=== PATIENT | female | born 1935 | race Caucasian/White ===

== ENCOUNTER 2016-11-13 | Outpatient (CLI) | payer MEDICARE, OTHER | END 2016-11-13 11:20 | disposition EMS.NT | DX: R03.0 Elevated blood-pressure reading, without diagnosis of hypertension (principal) ==

== ENCOUNTER 2016-11-13 12:32 | Emergency (ER) | payer MEDICARE, OTHER ==
[2016-11-13] MEDS ORDERED: SODIUM CHLORIDE 0.9% 1,000 ML IV ONE (14:08)
== END 2016-11-13 16:02 | disposition home or self-care (01) ==
DX: E86.0 Dehydration (principal); I10 Essential (primary) hypertension; E78.00 Pure hypercholesterolemia, unspecified; R19.7 Diarrhea, unspecified; Z79.82 Long term (current) use of aspirin

== ENCOUNTER 2016-11-14 | Outpatient (CLI) | payer MEDICARE, OTHER | END 2016-11-14 23:44 | disposition critical access hospital (66) | CPT/HCPCS: A0425; A0427 ==

== ENCOUNTER 2016-11-15 00:18 | Emergency (ER) | payer MEDICARE, OTHER ==
[2016-11-15] MEDS ORDERED: ISOSORBIDE MONONITRATE ER 30 MG TABLET PO STA (01:30)
[2016-11-15] MEDS ORDERED: ACETAMINOPHEN 325 MG TABLET PO STA (01:30)
[2016-11-15] MEDS ORDERED: ACETAMINOPHEN 325 MG TABLET PO ONE (01:34)
== END 2016-11-15 02:23 | disposition home or self-care (01) ==
DX: I15.9 Secondary hypertension, unspecified (principal); R51 Headache; E78.00 Pure hypercholesterolemia, unspecified; Z79.82 Long term (current) use of aspirin
CPT/HCPCS: 99284; A9270

== ENCOUNTER 2016-12-04 07:23 | Outpatient (CLI) | payer MEDICARE, OTHER | END 2016-12-04 07:24 | disposition home or self-care (01) | DX: R07.2 Precordial pain (principal); R51 Headache; I77.1 Stricture of artery; R06.02 Shortness of breath ==

== ENCOUNTER 2020-03-31 10:45 | Emergency (ER) | payer MEDICARE, OTHER ==
[2020-03-31 10:56] VITALS: BP 149/91
--- NOTE | 2020-03-31 11:28 | ED Physician Documentation ---
PD HPI LOWER EXT INJURY - Stated complaint Stated Complaint: LEFT CALF LAC - Chief complaint Chief Complaint: Laceration - History obtained from History obtained from: Patient - History of Present Illness PD HPI LOW EXT INJURY LOCATION: Right, Lower leg Type of injury: Blunt / blow Where injury occurred: Home Timing - onset: Last night Timing - duration: Hours Timing - details: Abrupt onset, Still present Improved by: Rest Worsened by: Moving, Palpating Associated symptoms: No: Weakness, Numbness, Tingling Contributing factors: Anticoagulated Similar symptoms before: Diagnosis (laceration) Recently seen: Other (Had colonoscopy this past week) - Additional information Additional information: 84-year-old female on Eliquis 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 She had bleeding all night long and she has come in this morning for repair. Review of Systems Constitutional: denies: Fever Eyes: denies: Decreased vision Ears: denies: Ear pain Nose: denies: Congestion Throat: denies: Sore throat Cardiac: denies: Chest pain / pressure, Palpitations Respiratory: denies: Dyspnea PD PAST MEDICAL HISTORY - Past Medical History Cardiovascular: Hypertension, High cholesterol - Past Surgical History Past Surgical History: No - Present Medications Home Medications: Ambulatory Orders Medication Instructions Recorded Confirmed Atenolol 50 mg PO DAILY 11/13/16 11/13/16 Levothyroxine [Synthroid] 100 mcg PO DAILY 11/13/16 11/13/16 Omeprazole [PriLOSEC] 20 mg PO DAILY 11/13/16 11/13/16 Simvastatin 10 mg PO DAILY 11/13/16 11/13/16 lisinopriL [Lisinopril] 40 mg PO DAILY 11/13/16 11/13/16 Isosorbide Mononitrate ER [Imdur] 15 mg PO DAILY #15 tablet 11/15/16 Apixaban [Eliquis] 5 mg PO 03/31/20 Chloroquine Phosphate 250 mg PO 03/31/20 Prednisone 5 mg PO 03/31/20 - Allergies Allergies/Adverse Reactions: Allergies Allergy/AdvReac Type Severity Reaction Status Date / Time No Known Drug Allergies Allergy Verified 03/31/20 10:56 - Social History Does the pt smoke?: No Smoking Status: Never smoker Does the pt drink ETOH?: No Does the pt have substance abuse?: No PD ED PE NORMAL - Vitals Vital signs reviewed: Yes (Hypertensive) - General General: Alert and oriented X 3, No acute distress, Well developed/nourished - HEENT HEENT: Atraumatic, PERRL, EOMI - Respiratory Respiratory: No respiratory distress - Derm Derm: Normal color, Warm and dry, No rash - Extremities Extremities: No deformity, No edema, No calf tenderness / cord, Other (There is a 4 cm skin tear to the right lower calf laterally. The skin does cover the defect there is no foreign material in the wound.) - Neuro Neuro: Alert and oriented X 3, accordion tuner 2-12 intact, No motor deficit, No sensory deficit, Normal speech Eye Opening: Spontaneous Motor: Obeys Commands Verbal: Oriented GCS Score: 15 - Psych Psych: Normal mood, Normal affect Results - Vitals Vitals: Vital Signs - 24 hr 03/31/20 10:52 Temperature 36.8 C Heart Rate 75 Respiratory 18 Rate Blood Pressure 149/91 H O2 Saturation 99 Oxygen O2 Source Room air Procedures - Laceration (location) Right calf Length in cm: 4 Wound type: Flap, Superficial, Clean Neurovascular status: Sensory intact, Motor intact Anesthesia: OTH (Topical lidocaine gel) Wound Preparation: Hibiclens, Irrigated copiously NS, Wound explored, To the base, Multiple flaps aligned Skin layer closure: Dermabond, Other (Sure closed is used with tincture of benzoin and Dermabond over the top.) Other: Patient tolerated well, No complications, Neurovascular intact, Dressing applied, Tetanus booster given Complexity: Simple PD MEDICAL DECISION MAKING - ED course Complexity details: reviewed old records, considered differential, d/w patient ED course: 84-year-old female with a superficial skin tear to her right calf has the skin reapproximated and this covers the defect well it is closed with Shur-Clens and Dermabond. She is given a tetanus booster. Departure - Departure Disposition: 01 Home, Self Care Clinical Impression: Laceration of right calf Condition: Stable Instructions: ED Laceration Sure Close Follow-Up: Your, doctor [Other]
[2020-03-31] MEDS ORDERED: TETANUS/DIPHTHERIA/PERTUSSIS 0.5 ML SYRINGE IM ONE (11:32)
== END 2020-03-31 11:59 | disposition home or self-care (01) ==
LOC: ED 10:45
DX: S81.811A Laceration without foreign body, right lower leg, initial encounter (principal); W22.09XA Striking against other stationary object, initial encounter; Y92.000 Kitchen of unspecified non-institutional (private) residence as the place of occurrence of the external cause; Z23 Encounter for immunization; I10 Essential (primary) hypertension; Z79.01 Long term (current) use of anticoagulants
CPT/HCPCS: 12002; 90471; 99282; 99283

== ENCOUNTER 2021-04-05 08:00 | Outpatient (CLI) | payer MEDICARE, OTHER | END 2021-04-05 23:59 | disposition home or self-care (01) | LOC: LAB.S 08:00 | PROVIDERS: ATTEND Emergency Medicine | DX: L02.612 Cutaneous abscess of left foot (principal) | CPT/HCPCS: 87070; 87077; 87181; 87205 ==

== ENCOUNTER 2021-09-19 16:17 | Outpatient (CLI) | payer MEDICARE, OTHER ==
[2021-09-19 20:03] LABS: CALCIUM 9.8 mg/dL (8.5-10.3); CREATININE 1.1 mg/dL (0.4-1.0); POTASSIUM 4.6 mmol/L (3.5-5.0)
== END 2021-09-19 16:18 | disposition home or self-care (01) ==
LOC: LAB.S 16:17
PROVIDERS: ATTEND Internal Medicine
DX: E87.1 Hypo-osmolality and hyponatremia (principal)
CPT/HCPCS: 36415; 80048

== ENCOUNTER 2021-10-03 09:13 | Outpatient (CLI) | payer MEDICARE, OTHER ==
[2021-10-03 14:52] LABS: BASOPHILS # (AUTO) 0.1 10^3/uL (0.0-0.1); BASOPHILS % (AUTO) 1.2 %; EOSINOPHILS # (AUTO) 0.3 10^3/uL (0.0-0.7); EOSINOPHILS % (AUTO) 5.1 %; HCT - HEMATOCRIT 36.5 % (37.0-47.0); HGB - HEMOGLOBIN 11.8 g/dL (12.0-16.0); LYMPHOCYTES # (AUTO) 1.9 10^3/uL (1.5-3.5); LYMPHOCYTES % (AUTO) 32.9 %; MEAN CORPUSCULAR HGB CONC 32.3 g/dL (32.0-36.0); MEAN CORPUSCULAR VOLUME 98.9 fL (81.0-99.0); MEAN PLATELET VOLUME 11.4 fL (7.9-10.8); MONOCYTES # (AUTO) 0.6 10^3/uL (0.0-1.0); MONOCYTES % (AUTO) 10.5 %; NEUTROPHILS # (AUTO) 2.9 10^3/uL (1.5-6.6); PLT - PLATELET COUNT 177 10^3/uL (130-450); RED BLOOD COUNT 3.69 10^6/uL (4.20-5.40); RED CELL DISTRIBUTION WIDTH 12.4 % (12.0-15.0); WHITE BLOOD COUNT 5.7 x10^3/uL (4.8-10.8)
[2021-10-03 15:28] LABS: CALCIUM 9.3 mg/dL (8.5-10.3); POTASSIUM 4.4 mmol/L (3.5-5.0)
[2021-10-03 15:47] LABS: THYROID STIMULATING HORMONE 1.99 uIU/mL (0.34-5.60)
[2021-10-03 20:38] LABS: ESTIMATED AVERAGE GLUCOSE 111 mg/dL (70-100); HEMOGLOBIN A1c% 5.5 % (4.27-6.07)
== END 2021-10-03 09:14 | disposition home or self-care (01) ==
LOC: LAB.S 09:13
PROVIDERS: ATTEND Internal Medicine
DX: E87.1 Hypo-osmolality and hyponatremia (principal); R61 Generalized hyperhidrosis; E03.9 Hypothyroidism, unspecified; R20.0 Anesthesia of skin; R73.9 Hyperglycemia, unspecified; E53.8 Deficiency of other specified B group vitamins
CPT/HCPCS: 36415; 80048; 81599; 82607; 83036; 84155; 84165; 84443; 85025; 86592

== ENCOUNTER 2021-11-08 08:00 | Outpatient (CLI) | payer MEDICARE, OTHER | END 2021-11-08 08:01 | disposition home or self-care (01) | LOC: LAB.R 08:00 | PROVIDERS: ATTEND Physician Assistant | DX: L60.0 Ingrowing nail (principal); L03.039 Cellulitis of unspecified toe | CPT/HCPCS: 87070; 87205 ==

== ENCOUNTER 2021-12-03 11:27 | Outpatient (CLI) | payer MEDICARE, OTHER ==
--- NOTE | 2021-12-03 12:11 | XRAY Report ---
PROCEDURE: Chest 2 View X-Ray INDICATIONS: CHRONIC RIGHT KNEE PAIN, NIGHT SWEATS TECHNIQUE: 2 view(s) of the chest. COMPARISON: None. FINDINGS: Surgical changes and devices: Cholecystectomy clips.. Lungs and pleura: No pleural effusions or pneumothorax. Lungs are clear. Mediastinum: Mediastinal contours are normal. Heart size is normal. Bones and chest wall: No suspicious bony abnormalities. Severe disc height loss in the upper lumbar spine. Soft tissues appear unremarkable. IMPRESSION: No acute cardiopulmonary disease. Reviewed by: Petra Lee MD on 12/03/2021 12:10 PM PST Approved by: Petra Lee MD on 12/03/2021 12:10 PM PST Station ID: [id number]
--- NOTE | 2021-12-03 17:00 | XRAY Report ---
PROCEDURE: Knee 4 View RT INDICATIONS: CHRONIC RIGHT KNEE PAIN, NIGHT SWEATS TECHNIQUE: 4 views of the right knee(s) were acquired. COMPARISON: None. FINDINGS: Bones: No fractures or dislocations. No suspicious bony lesions. Mild tricompartmental periarticul ar osteophyte formation. Soft tissues: No joint effusion. Chondrocalcinosis within the medial and lateral compartments. Focal region of ossific versus calcific density overlies the proximal aspect of the medial collateral liga ment. IMPRESSION: 1. Osteoarthritis. 2. Chondrocalcinosis. 3. Findings suggestive of prior medial collateral ligament injury. Reviewed by: Sachin Cat MD on 12/03/2021 4:59 PM PST Approved by: Sachin Cat MD on 12/03/2021 4:59 PM PST Station ID: [id number]
== END 2021-12-03 11:28 | disposition home or self-care (01) ==
LOC: DI.S 11:27
PROVIDERS: ATTEND Internal Medicine
DX: R61 Generalized hyperhidrosis (principal); M17.11 Unilateral primary osteoarthritis, right knee; M11.261 Other chondrocalcinosis, right knee; R93.6 Abnormal findings on diagnostic imaging of limbs

== ENCOUNTER 2021-12-06 10:18 | Outpatient (CLI) | payer MEDICARE, OTHER ==
[2021-12-06 15:14] LABS: BASOPHILS # (AUTO) 0.1 10^3/uL (0.0-0.1); BASOPHILS % (AUTO) 1.4 %; EOSINOPHILS # (AUTO) 0.2 10^3/uL (0.0-0.7); EOSINOPHILS % (AUTO) 4.3 %; HGB - HEMOGLOBIN 12.2 g/dL (12.0-16.0); LYMPHOCYTES # (AUTO) 2.1 10^3/uL (1.5-3.5); LYMPHOCYTES % (AUTO) 42.9 %; MEAN CORPUSCULAR HGB CONC 32.1 g/dL (32.0-36.0); MEAN CORPUSCULAR VOLUME 99.7 fL (81.0-99.0); MEAN PLATELET VOLUME 11.2 fL (7.9-10.8); MONOCYTES # (AUTO) 0.5 10^3/uL (0.0-1.0); MONOCYTES % (AUTO) 9.7 %; NEUTROPHILS # (AUTO) 2.1 10^3/uL (1.5-6.6); NEUTROPHILS % (AUTO) 41.5 %; PLT - PLATELET COUNT 173 10^3/uL (130-450); RED BLOOD COUNT 3.81 10^6/uL (4.20-5.40); WHITE BLOOD COUNT 4.9 x10^3/uL (4.8-10.8)
[2021-12-06 16:19] LABS: ALBUMIN/GLOBULIN RATIO 1.4 (1.0-2.2); BILIRUBIN,TOTAL 1.1 mg/dL (0.2-1.0); CALCIUM 9.5 mg/dL (8.5-10.3); CRP HIGH SENSITIVITY 1.4 mg/L; POTASSIUM 4.4 mmol/L (3.5-5.0); TOTAL PROTEIN 6.9 g/dL (6.7-8.2)
== END 2021-12-06 10:19 | disposition home or self-care (01) ==
LOC: LAB.S 10:18
PROVIDERS: ATTEND Internal Medicine
DX: D64.9 Anemia, unspecified (principal); R61 Generalized hyperhidrosis; E87.1 Hypo-osmolality and hyponatremia; E88.09 Other disorders of plasma-protein metabolism, not elsewhere classified; E53.8 Deficiency of other specified B group vitamins
CPT/HCPCS: 36415; 80053; 81599; 82728; 83540; 84466; 85025; 85651; 86141; 86340

== ENCOUNTER 2022-02-10 15:28 | Emergency (ER) | payer MEDICARE, OTHER ==
--- OUTSIDE RECORDS SUMMARY | 2022-02-10 15:41 | EXTERNAL MEDICAL SUMMARY RPT | Continuity of Care Document ---
:1935 Author Organization [facility] Address [address] [place] [address] Phone Care Team Providers Name Role Phone COLD PRESS LOADER Unavailable Unavailable Registrar Unavailable Unavailable MD Unavailable Unavailable NANNY BABYSITTER,GRAIN FARMWORKER Unavailable Unavailable Allergies No information. Encounters No information. Medications date description facility [id number] fluconazole [facility] [id number] doxycycline hyclate [facility] [id number] fluconazole [facility] [id number] doxycycline hyclate [facility] [id number] fluconazole [facility] [id number] doxycycline hyclate [facility] [id number] fluconazole [facility] [id number] doxycycline hyclate [facility] Problems date description facility [id number] Long-term (current) use of [facility] 20220210 snf (current) use of [facility] mark 20220210 Contusion of scalp, initial encounter [facility] 20220210 Contusion of scalp [facility] mark 20220210 Contusion of face, scalp, and neck [facility] mark 20220210 Anticoagulant therapy [facility] mark 20211212 Tobacco smoking status NHIS [facility] 20211212 Exercise [facility] 20211212 Alcohol intake [facility] mark 20211212 Never smoker [facility] 20211212 Alcohol use [facility] [id number] Never smoker [facility] 20211119 Tobacco smoking status [facility] mark 20211119 Exercise [facility] 20211119 Alcohol use [facility] mark 20211119 Alcohol intake [facility] mark Results No information. Vital Signs date measurement value source 20211119 weight_standard 136 lb 20211119 weight_metric 61.69 kg 20211119 temperature_standard 97.8 F 20211119 temperature_metric 36.56 C 20211119 respiration_rate 14 /min 20211119 height_standard 63 in 20211119 height_metric 160.02 cm 20211119 heart_rate 66 /min 20211119 BP_systolic 134 mm[Hg] 20211119 BP_diastolic 71 mm[Hg] 20211119 BMI 24.18 kg/m2 20211119 weight_standard 136 lb 20211119 weight_metric 61.69 kg 20211119 temperature_standard 97.8 F 20211119 temperature_metric 36.56 C 20211119 respiration_rate 14 /min 20211119 height_standard 63 in 20211119 height_metric 160.02 cm 20211119 heart_rate 66 /min 20211119 BP_systolic 134 mm[Hg] 20211119 BP_diastolic 71 mm[Hg] 20211119 BMI 24.18 kg/m2 20211119 weight_standard 136 lb 20211119 weight_metric 61.69 kg 20211119 temperature_standard 97.8 F 20211119 temperature_metric 36.56 C 20211119 respiration_rate 14 /min 20211119 height_standard 63 in 20211119 height_metric 160.02 cm 20211119 heart_rate 66 /min 20211119 BP_systolic 134 mm[Hg] 20211119 BP_diastolic 71 mm[Hg] 20211119 BMI 24.18 kg/m2 20211119 weight_standard 136 lb 20211119 weight_metric 61.69 kg 20211119 temperature_standard 97.8 F 20211119 temperature_metric 36.56 C 20211119 respiration_rate 14 /min 20211119 height_standard 63 in 20211119 height_metric 160.02 cm 20211119 heart_rate 66 /min 20211119 BP_systolic 134 mm[Hg] 20211119 BP_diastolic 71 mm[Hg] 20211119 BMI 24.18 kg/m2 20211212 weight_standard 136 lb 20211212 weight_metric 61.69 kg 20211212 temperature_standard 97.2 F 20211212 temperature_metric 36.22 C 20211212 respiration_rate 14 /min 20211212 height_standard 63 in 20211212 height_metric 160.02 cm 20211212 heart_rate 66 /min 20211212 BP_systolic 126 mm[Hg] 20211212 BP_diastolic 73 mm[Hg] 20211212 BMI 24.18 kg/m2 20211212 weight_standard 136 lb 20211212 weight_metric 61.69 kg 20211212 temperature_standard 97.2 F 20211212 temperature_metric 36.22 C 20211212 respiration_rate 14 /min 20211212 height_standard 63 in 20211212 height_metric 160.02 cm 20211212 heart_rate 66 /min 20211212 BP_systolic 126 mm[Hg] 20211212 BP_diastolic 73 mm[Hg] 20211212 BMI 24.18 kg/m2 20220210 temperature_standard 97.9 F 20220210 temperature_metric 36.61 C 20220210 respiration_rate 14 /min 20220210 height_standard 63 in 20220210 height_metric 160.02 cm 20220210 heart_rate 74 /min 20220210 BP_systolic 147 mm[Hg] 20220210 BP_diastolic 75 mm[Hg]
--- NOTE | 2022-02-10 15:48 | ED Physician Documentation ---
History of Present Illness - Stated complaint Stated Complaint: fall, facial bruising - Chief complaint Chief Complaint: Trauma Hd/Nk - History obtained from History obtained from: Patient, Family - History of Present Illness Timing: How many days ago (2) Pain level max: 0 Pain level now: 0 - Additonal information Additional information: 86-year-old female brought in by family today. She states that she was walking across her bedroom 2 days ago when she tripped and fell. She struck her head on the door. No loss of consciousness. No vomiting. No headache. No lacerations. She does take Eliquis at home. She states that the bruising on her face increased today so came in for evaluation. No neck or back pain. No numbness or tingling. Nothing makes it better or worse. Patient is asymptomatic. Patient has macular degeneration but no changes in vision. Review of Systems Ten Systems: 10 systems reviewed and negative Constitutional: denies: Fever, Chills Ears: denies: Ear pain Nose: denies: Rhinorrhea / runny nose, Congestion Respiratory: denies: Cough GI: denies: Nausea, Vomiting, Diarrhea : denies: Dysuria Skin: denies: Rash Musculoskeletal: denies: Neck pain, Back pain Neurologic: denies: Headache PD PAST MEDICAL HISTORY - Past Medical History Cardiovascular: Hypertension, High cholesterol - Past Surgical History Past Surgical History: No - Present Medications Home Medications: Ambulatory Orders Medication Instructions Recorded Confirmed Atenolol 50 mg PO DAILY 11/13/16 11/13/16 Levothyroxine [Synthroid] 100 mcg PO DAILY 11/13/16 11/13/16 Omeprazole [PriLOSEC] 20 mg PO DAILY 11/13/16 11/13/16 Simvastatin 10 mg PO DAILY 11/13/16 11/13/16 lisinopriL [Lisinopril] 40 mg PO DAILY 11/13/16 11/13/16 Isosorbide Mononitrate ER [Imdur] 15 mg PO DAILY #15 tablet 11/15/16 Apixaban [Eliquis] 5 mg PO 03/31/20 Chloroquine Phosphate 250 mg PO 03/31/20 predniSONE [Prednisone] 5 mg PO 03/31/20 Cefdinir 300 mg PO BID #14 cap 02/07/22 - Allergies Allergies/Adverse Reactions: Allergies Allergy/AdvReac Type Severity Reaction Status Date / Time No Known Drug Allergies Allergy Verified 02/10/22 15:30 - Social History Does the pt smoke?: No Smoking Status: Never smoker Does the pt drink ETOH?: No Does the pt have substance abuse?: No - POLST Patient has POLST: No PD ED PE NORMAL - Vitals Vital signs reviewed: Yes - General General: Alert and oriented X 3, No acute distress - HEENT HEENT: PERRL, Moist mucous membranes, Other (Extensive bruising to the right side of the face. Her eye is open, tracks normally. Extraocular movements intact. Mild bony tenderness periorbital around the right eye. Has a small hematoma to the forehead.) - Neck Neck: Supple, no meningeal sign, No bony TTP - Cardiac Cardiac: RRR, Strong equal pulses - Respiratory Respiratory: No respiratory distress, Clear bilaterally - Abdomen Abdomen: Soft, Non tender, Non distended - Derm Derm: Warm and dry - Extremities Extremities: Normal ROM s pain - Neuro Neuro: Alert and oriented X 3, lumber cutter 2-12 intact, No motor deficit, No sensory deficit, Normal speech Eye Opening: Spontaneous Motor: Obeys Commands Verbal: Oriented GCS Score: 15 - Psych Psych: Normal mood, Normal affect Results - Vitals Vitals: Vital Signs - 24 hr 02/10/22 02/10/22 02/10/22 15:32 15:36 16:29 Temperature 36.5 C 36.5 C 36.0 C L Heart Rate 72 72 69 Respiratory 18 18 16 Rate Blood Pressure 137/71 H 137/71 H 133/81 H O2 Saturation 99 99 98 Oxygen O2 Source Room air - Rads (name of study) Head CT Radiology: Final report received, EMP read contemporaneously, See rad report maxillofacial CT Radiology: Final report received, EMP read contemporaneously, See rad report PD MEDICAL DECISION MAKING - ED course Complexity details: reviewed results, re-evaluated patient, considered differential, d/w patient ED course: Head CT and maxillofacial CT did not show any fractures or intracranial hemorrhage. Appears to have subcutaneous bruising, hematoma and contusion. Normal vision. No hyphema. We will have the patient follow-up with her doctor for further care. Bruising should resolve on its own. Patient counseled regarding signs and symptoms for which I believe and urgent re-evaluation would be necessary. Patient with good understanding of and agreement to plan and is comfortable going home at this time This document was made in part using voice recognition software. While efforts are made to proofread this document, sound alike and grammatical errors may occur. Departure - Departure Disposition: 01 Home, Self Care Clinical Impression: Fall Qualifiers: Encounter type: initial encounter Qualified Code(s): W19.XXXA - Unspecified fall, initial encounter Facial contusion Qualifiers: Encounter type: initial encounter Qualified Code(s): S00.83XA - Contusion of other part of head, initial encounter Condition: Good Instructions: ED Contusion Face, ED Head Injury Closed Follow-Up: IVANA LUCIA MD [Primary Care Provider] - As Needed Comments: Thankfully your CT scans do not show any acute abnormalities. The bruising will resolve on its own over the next week or so. Continue your medications at home. Return if you worsen. Discharge Date/Time: 02/10/22 16:35
--- NOTE | 2022-02-10 16:16 | CT Report ---
PROCEDURE: MAXILLOFACIAL WO INDICATIONS: fall, facial injuries TECHNIQUE: Noncontrast 1.5 mm thick axial images acquired from the mandible through the frontal sinuses, with co nayeli and sagittal reformatting. For radiation dose reduction, the following was used: automated ex posure control, adjustment of mA and/or kV according to patient size. COMPARISON: Correlation is made with the accompanying head CT, 02/10/2022. Correlation is also made w ith report only from prior head CT examinations dated 11/19/2016 and 02/22/2010. FINDINGS: Image quality: Excellent. Bones and teeth: Orbital lara are intact. Sinus lara show no fracture or deformity. Nasal bones and septum are intact. Visualized portions of the mandible demonstrate no fractures or subluxation. Zygomatic arches are intact. Pterygoid plates are intact. Visualized portions of the skull base an d auditory canals are intact. This patient is incidental is. Sinuses: Paranasal sinuses are aerated, without fluid levels, mucosal thickening, or mucoceles. Mas toid air cells are aerated. Soft tissues: Mild soft tissue hematoma can be seen involving the right forehead. There is mild gener alized soft tissue swelling seen involving the right periorbital region and the right cheek, yet with out focal hematoma. No radiopaque foreign bodies are seen. No drainable fluid collections are seen. No significant abnormalities of the orbits are detected. Vascular: Visualized vascular structures appear normal in the absence of contrast. Bony vascular fo ramina and canals are intact. IMPRESSION: Right forehead hematoma can be seen, with milder soft tissue swelling seen involving the right perior bital region and the right cheek. No underlying facial bone fractures are seen. Reviewed by: Alex Vang MD on 02/10/2022 3:15 PM [facility] Approved by: Alex Vang MD on 02/10/2022 3:15 PM [facility] Station ID: [id number]
--- NOTE | 2022-02-10 16:17 | CT Report ---
PROCEDURE: HEAD WO INDICATIONS: fall, head injury TECHNIQUE: Noncontrast 4.5 mm thick angled axial sections acquired from the foramen magnum to the vertex. For r adiation dose reduction, the following was used: automated exposure control, adjustment of mA and/or kV according to patient size. COMPARISON: Correlation is made with the accompanying maxillofacial CT, 02/10/2022. Correlation is al so made with reports only from prior head CT dated 11/19/2016 and 02/22/2010. FINDINGS: Image quality: There is streak artifact seen through the skull base. CSF spaces: Basal cisterns are patent. No extra-axial fluid collections. Ventricles are normal in size and shape. Brain: No midline shift. No intracranial masses or hemorrhage. Denny-white matter interface is norm al. Skull and face: A right forehead scalp hematoma is seen, without an associated regional fracture. Mi ld periorbital soft tissue swelling is seen and there is partial visualization of soft tissue swellin g of the right cheek. Calvarium and visualized facial bones are intact, without suspicious lesions. Sinuses: Visualized sinuses and mastoids are clear. IMPRESSION: No intracranial hemorrhage is seen. No significant intracranial abnormality is seen. Right forehead soft tissue hematoma can be seen, without an associated fracture identified. Reviewed by: Alex Vang MD on 02/10/2022 3:16 PM [facility] Approved by: Alex Vang MD on 02/10/2022 3:16 PM [facility] Station ID: [id number]
[2022-02-10 16:30] VITALS: BP 133/81
== END 2022-02-10 16:35 | disposition home or self-care (01) ==
LOC: ED 15:28
DX: S00.83XA Contusion of other part of head, initial encounter (principal); W01.198A Fall on same level from slipping, tripping and stumbling with subsequent striking against other object, initial encounter; Y93.01 Activity, walking, marching and hiking; Y92.003 Bedroom of unspecified non-institutional (private) residence as the place of occurrence of the external cause
CPT/HCPCS: 99282; 99284

== ENCOUNTER 2022-11-27 13:11 | Outpatient (CLI) | payer MEDICARE, OTHER ==
--- NOTE | 2022-12-04 11:26 | Mammography Report ---
BILATERAL DIGITAL SCREENING MAMMOGRAM 3D/2D: 11/27/2022 CLINICAL: Routine screening. No prior exams were available for comparison. There are scattered areas of fibroglandular density in both breasts (category b / 25%-50% glandular t issue). No significant masses, calcifications, or other findings are seen in either breast. IMPRESSION: NEGATIVE There is no mammographic evidence of malignancy. A 1 year screening mammogram is recommended. This exam was interpreted at Station ID: [id number]. NOTE: For mammograms, a report in lay terms will be sent to the patient. Approximately 15% of breast malignancies will not be visualized mammographically. In the management of a palpable breast mass, a negative mammogram must not discourage biopsy of a clinically suspicious lesion. Electronically Signed By: Anibal reddy/rose:12/04/2022 07:50:36 ACR BI-RADS Category 1: Negative 3341F PARENCHYMAL PATTERN: (A) - The breast(s) demonstrate(s) scattered fibroglandular densities. BI-RADS CATEGORY: (1) - 1 RECOMMENDATION: (ANNUAL) - Recommend routine annual screening mammography. [id number] 1 year screening LATERALITY: (B)
== END 2022-11-27 13:12 | disposition home or self-care (01) ==
LOC: DI.S 13:11
DX: Z12.31 Encounter for screening mammogram for malignant neoplasm of breast (principal)

== ENCOUNTER 2023-02-03 11:24 | Outpatient (CLI) | payer MEDICARE, OTHER ==
--- NOTE | 2023-02-03 13:15 | XRAY Report ---
PROCEDURE: Chest 2 View X-Ray INDICATIONS: NIGHT SWEATS TECHNIQUE: 2 views of the chest were acquired. COMPARISON: Chest x-ray, 02/06/2022. FINDINGS: Surgical changes and devices: None. Lungs and pleura: No pleural effusions or pneumothorax. Lungs are clear. Mediastinum: Mediastinal contours appear normal. Heart size is normal. Bones and chest wall: No suspicious bony lesions. Overlying soft tissues appear unremarkable. IMPRESSION: No acute cardiopulmonary disease. Reviewed by: David Hsu MD on 02/03/2023 1:14 PM PDT Approved by: David Hsu MD on 02/03/2023 1:14 PM PDT Station ID: [id number]
== END 2023-02-03 11:25 | disposition home or self-care (01) ==
LOC: DI.S 11:24
PROVIDERS: ATTEND Internal Medicine
DX: R61 Generalized hyperhidrosis (principal)

== ENCOUNTER 2024-02-22 17:30 | Outpatient (CLI) | payer MEDICARE, OTHER | END 2024-02-22 23:59 | disposition left against medical advice (07) | LOC: EMS 17:30 | DX: R53.1 Weakness (principal); R51.9 Headache, unspecified ==

== ENCOUNTER 2024-02-23 14:21 | Outpatient (CLI) | payer MEDICARE, OTHER ==
--- NOTE | 2024-02-23 16:27 | DEXA Report ---
PROCEDURE: Dexa Spine and/or Hip INDICATIONS: POST MENOPAUSAL TECHNIQUE: Dual energy x-ray absorptiometry (DXA) was performed on a [employer] System. Regions measur ed are the AP Spine, femoral neck, and if needed forearm. COMPARISON: None FINDINGS: Lumbar Spine: Bone Mineral Density: 1.39 g/cm/cm,T score: 1.9. There are artifactual areas of increased density at L3 and L4. L1 and L2 are within normal limits. Left Femoral Neck: Bone Mineral Density: 0.71 g/cm/cm, T score: -2.4. Left Hip: Bone Mineral Density: 0.87 g/cm/cm,T score: -1.1. (T score greater or equal to -1.0: NORMAL) (T score from -1.1 to -2.4: OSTEOPENIA) (T score less than or equal to -2.5 to: OSTEOPOROSIS) Impression: By WHO criteria, this patient has low bone density (osteopenia). Patients with diagnosis of osteoporosis or osteopenia should have regular bone mineral density assess ment. For those eligible for Medicare, routine testing is allowed once every 2 years. Testing frequ ency can be increased for patients who have rapidly progressing disease or for those who are receivin g medical therapy to restore bone mass. Reviewed by: Jeffry Gonsalez MD on 02/23/2024 4:26 PM PDT Approved by: Jeffry Gonsalez MD on 02/23/2024 4:26 PM PDT Station ID: [id number]
== END 2024-02-23 14:22 | disposition home or self-care (01) ==
LOC: DI 14:21
PROVIDERS: ATTEND Internal Medicine
DX: M85.89 Other specified disorders of bone density and structure, multiple sites (principal); Z78.0 Asymptomatic menopausal state

== ENCOUNTER 2024-05-08 03:21 | Outpatient (CLI) | payer MEDICARE, OTHER | END 2024-05-08 23:59 | disposition critical access hospital (66) | LOC: EMS 03:21 | DX: U07.1 COVID-19 (principal); R11.2 Nausea with vomiting, unspecified; R19.7 Diarrhea, unspecified; R53.1 Weakness | CPT/HCPCS: A0425; A0427 ==

== ENCOUNTER 2024-05-08 04:00 | Inpatient (IN) | payer MEDICARE, OTHER ==
--- NOTE | 2024-05-08 04:18 | ED Physician Documentation ---
History of Present Illness - Stated complaint Stated Complaint: C+, N/V/D - Chief complaint Chief Complaint: Abd Pain - History obtained from History obtained from: Patient - Additonal information Additional information: 89yF With past medical history of hypertension, hyperlipidemia, on Eliquis, presents with COVID since then since nausea, nbnb vomiting, nonbloody diarrhea.Also with chills and malaise. Denies cough, shortness of breath. on day 2 of paxlovid PD PAST MEDICAL HISTORY - Past Medical History Cardiovascular: Hypertension, High cholesterol - Past Surgical History Past Surgical History: No - Present Medications Home Medications: Ambulatory Orders Medication Instructions Recorded Confirmed Atenolol 50 mg PO DAILY 11/13/16 05/08/24 Levothyroxine [Synthroid] 100 mcg PO DAILY 11/13/16 05/08/24 Simvastatin 10 mg PO DAILY 11/13/16 05/08/24 lisinopriL [Lisinopril] 40 mg PO DAILY 11/13/16 05/08/24 Apixaban [Eliquis] 5 mg PO BID 03/31/20 05/08/24 - Allergies Allergies/Adverse Reactions: Allergies Allergy/AdvReac Type Severity Reaction Status Date / Time No Known Drug Allergies Allergy Verified 02/10/22 15:30 - Social History Does the pt smoke?: No Smoking Status: Never smoker Does the pt drink ETOH?: No Does the pt have substance abuse?: No - POLST Patient has POLST: No PD ED PE NORMAL - Vitals Vital signs reviewed: Yes - General General: Alert and oriented X 3, No acute distress, Well developed/nourished, Other (elderly appearing) - HEENT HEENT: Atraumatic, PERRL, EOMI - Neck Neck: Supple, no meningeal sign - Cardiac Cardiac: RRR - Respiratory Respiratory: No respiratory distress, Clear bilaterally - Abdomen Abdomen: Non tender, Non distended - Derm Derm: Normal color, Warm and dry - Extremities Extremities: No deformity - Neuro Neuro: No motor deficit, No sensory deficit - Psych Psych: Normal mood, Normal affect Results - Vitals Vitals: Vital Signs - 24 hr 05/08/24 05/08/24 04:08 06:27 Temperature 36.9 C Heart Rate 68 70 Respiratory 14 16 Rate Blood Pressure 126/96 H 132/94 H O2 Saturation 100 98 Oxygen O2 Source Room air - Labs Labs: Laboratory Tests 05/08/24 05/08/24 05/08/24 04:25 04:25 05:31 WBC 2.1 L RBC 3.24 L Hgb 10.2 L Hct 30.1 L MCV 92.9 MCH 31.5 H MCHC 33.9 RDW 11.9 L Plt Count 122 L MPV 11.3 H Neut # (Auto) 1.1 L Lymph # (Auto) 0.8 L [place] # (Auto) 0.2 Eos # (Auto) 0.0 Baso # (Auto) 0.0 Absolute Nucleated RBC 0.00 Nucleated RBC % 0.0 Manual Slide Review Indicated Platelet Estimate NORMAL (130-450,000) Platelet Morphology NORMAL APPEARANCE Sodium 119 L* Potassium 3.6 Chloride 91 L Carbon Dioxide 21 Anion Gap 7.0 BUN 13 Creatinine 0.7 Estimated GFR (MDRD) 79 L Glucose 124 H Calcium 8.2 L Total Bilirubin 0.6 AST 21 ALT 10 Alkaline Phosphatase 47 Total Protein 5.4 L Albumin 3.4 Globulin 2.0 L Albumin/Globulin Ratio 1.7 Lipase 43 Urine Color YELLOW Urine Clarity CLEAR Urine pH 7.5 Ur Specific [place] 1.015 Urine Protein NEGATIVE Urine Glucose (UA) NEGATIVE Urine Ketones TRACE Urine Occult Blood NEGATIVE Urine Nitrite NEGATIVE Urine Bilirubin NEGATIVE Urine Urobilinogen 0.2 (NORMAL) Ur Leukocyte Esterase NEGATIVE Ur Microscopic Review NOT INDICATED Urine Culture Comments NOT INDICATED 05/08/24 05/08/24 05:38 05:38 WBC 2.4 L RBC 3.51 L Hgb 11.2 L Hct 32.4 L MCV 92.3 MCH 31.9 H MCHC 34.6 RDW 12.1 Plt Count 118 L MPV 10.8 Neut # (Auto) 1.2 L Lymph # (Auto) 0.9 L [place] # (Auto) 0.2 Eos # (Auto) 0.0 Baso # (Auto) 0.0 Absolute Nucleated RBC 0.00 Nucleated RBC % 0.0 Manual Slide Review Platelet Estimate Platelet Morphology Sodium 120 L* Potassium 3.7 Chloride 92 L Carbon Dioxide 22 Anion Gap 6.0 BUN 12 Creatinine 0.7 Estimated GFR (MDRD) 79 L Glucose 109 H Calcium 8.5 Total Bilirubin 0.6 AST 23 ALT 11 Alkaline Phosphatase 51 Total Protein 5.8 L Albumin 3.6 Globulin 2.2 Albumin/Globulin Ratio 1.6 Lipase 53 Urine Color Urine Clarity Urine pH Ur Specific [place] Urine Protein Urine Glucose (UA) Urine Ketones Urine Occult Blood Urine Nitrite Urine Bilirubin Urine Urobilinogen Ur Leukocyte Esterase Ur Microscopic Review Urine Culture Comments PD Medical Decision Making - ED course ED course: 89yF p/w n/v/d 2/2 covid, despite paxlovid therapy. zofran, pepcid provided with relief of nausea. ivf provided. Patient has profound hyponatremia on labwork in addition to leukopenia and anemia. Labs were repeated to confirm that these values are accurate. plan to admit for further management. Departure - Departure Disposition: [facility] DC/Xfer Clinical Impression: Vomiting, Diarrhea, Hyponatremia, Anemia, Leukopenia Condition: Stable Instructions: ED Nausea Vomiting Comments: You were seen in the emergency department for vomiting and diarrhea. If you're not having fever you can take over the counter immodium for diarrhea. You should get pedialyte, adult electrolyte solution, or gatorade from the pharmacy and try to stay well hydrated. Antinausea medicine was sent to your [facility]. Please follow-up with your primary care provider and return to the emergency department if you have any new or worsening symptoms or other concerns. Forms: PCP List
[2024-05-08] MEDS: SODIUM CHLORIDE 0.9% 1,000 ML IV STA ×2 (04:42→06:25)
[2024-05-08] MEDS: FAMOTIDINE 20 MG/2 ML VIAL IVP STA (04:42)
[2024-05-08] MEDS: ONDANSETRON 4 MG/2 ML VIAL IVP STA (04:42)
[2024-05-08 05:00] LABS: BASOPHILS % (AUTO) 0.5 %; HCT - HEMATOCRIT 30.1 % (37.0-47.0); HGB - HEMOGLOBIN 10.2 g/dL (12.0-16.0); LYMPHOCYTES # (AUTO) 0.8 10^3/uL (1.5-3.5); LYMPHOCYTES % (AUTO) 38.3 %; MEAN CORPUSCULAR HEMOGLOBIN 31.5 pg (27.0-31.0); MEAN CORPUSCULAR HGB CONC 33.9 g/dL (32.0-36.0); MEAN CORPUSCULAR VOLUME 92.9 fL (81.0-99.0); MEAN PLATELET VOLUME 11.3 fL (7.9-10.8); MONOCYTES # (AUTO) 0.2 10^3/uL (0.0-1.0); MONOCYTES % (AUTO) 10.5 %; NEUTROPHILS # (AUTO) 1.1 10^3/uL (1.5-6.6); NEUTROPHILS % (AUTO) 50.2 %; PLT - PLATELET COUNT 122 10^3/uL (130-450); RED BLOOD COUNT 3.24 10^6/uL (4.20-5.40); RED CELL DISTRIBUTION WIDTH 11.9 % (12.0-15.0); WHITE BLOOD COUNT 2.1 x10^3/uL (4.8-10.8)
[2024-05-08 05:04] LABS: SLIDE REVIEW? Indicated
[2024-05-08 05:26] LABS: PLATELET ESTIMATE, MANUAL NORMAL (130-450,000) (NORMAL); PLATELET MORPHOLOGY NORMAL APPEARANCE (NORMAL)
[2024-05-08 05:27] LABS: ALBUMIN 3.4 g/dL (3.2-5.5); ALBUMIN/GLOBULIN RATIO 1.7 (1.0-2.2); BILIRUBIN,TOTAL 0.6 mg/dL (0.2-1.0); CALCIUM 8.2 mg/dL (8.5-10.3); CREATININE 0.7 mg/dL (0.6-1.3); POTASSIUM 3.6 mmol/L (3.5-4.5); TOTAL PROTEIN 5.4 g/dL (6.4-8.9)
[2024-05-08] MEDS: MORPHINE 10 MG/ML VIAL IVP STA (05:54)
[2024-05-08 06:12] LABS: BILIRUBIN,URINE NEGATIVE (NEGATIVE); GLUCOSE, URINE (UA) NEGATIVE (NEGATIVE); KETONES,URINE (UA) TRACE mg/dL (NEGATIVE); LEUKOCYTE ESTERASE, URINE NEGATIVE (NEGATIVE); NITRITE,URINE NEGATIVE (NEGATIVE); OCCULT BLOOD,URINE NEGATIVE (NEGATIVE); PH,URINE 7.5 PH (5.0-7.5); PROTEIN,URINE NEGATIVE (NEGATIVE); UROBILINOGEN,URINE 0.2 (NORMAL) E.U./dL (NORMAL)
[2024-05-08 06:14] LABS: CLARITY,URINE CLEAR (CLEAR)
[2024-05-08 06:15] LABS: BASOPHILS % (AUTO) 0.4 %; HCT - HEMATOCRIT 32.4 % (37.0-47.0); HGB - HEMOGLOBIN 11.2 g/dL (12.0-16.0); LYMPHOCYTES # (AUTO) 0.9 10^3/uL (1.5-3.5); LYMPHOCYTES % (AUTO) 38.1 %; MEAN CORPUSCULAR HEMOGLOBIN 31.9 pg (27.0-31.0); MEAN CORPUSCULAR HGB CONC 34.6 g/dL (32.0-36.0); MEAN CORPUSCULAR VOLUME 92.3 fL (81.0-99.0); MEAN PLATELET VOLUME 10.8 fL (7.9-10.8); MONOCYTES # (AUTO) 0.2 10^3/uL (0.0-1.0); MONOCYTES % (AUTO) 9.3 %; NEUTROPHILS # (AUTO) 1.2 10^3/uL (1.5-6.6); NEUTROPHILS % (AUTO) 51.8 %; PLT - PLATELET COUNT 118 10^3/uL (130-450); RED BLOOD COUNT 3.51 10^6/uL (4.20-5.40); RED CELL DISTRIBUTION WIDTH 12.1 % (12.0-15.0); WHITE BLOOD COUNT 2.4 x10^3/uL (4.8-10.8)
[2024-05-08 06:45] LABS: ALBUMIN 3.6 g/dL (3.2-5.5); ALBUMIN/GLOBULIN RATIO 1.6 (1.0-2.2); BILIRUBIN,TOTAL 0.6 mg/dL (0.2-1.0); CALCIUM 8.5 mg/dL (8.5-10.3); CREATININE 0.7 mg/dL (0.6-1.3); POTASSIUM 3.7 mmol/L (3.5-4.5); TOTAL PROTEIN 5.8 g/dL (6.4-8.9)
[2024-05-08] MEDS ORDERED: SODIUM CHLORIDE FLUSH 0.9% 10 ML SYRINGE IVP PRN (08:22)
[2024-05-08] MEDS ORDERED: ONDANSETRON ODT 4 MG TABLET TL PRN (08:22)
[2024-05-08] MEDS ORDERED: ACETAMINOPHEN 325 MG TABLET PO PRN (08:22)
--- NOTE | 2024-05-08 08:41 | HISTORY & PHYSICAL EXAMINATION ---
Chief Complaint - Chief Complaint Chief Complaint: Covid, N/V/D History of Present Illness - Admitted From Admitted From:: ED - History Obtained From Records Reviewed: past [place] visits, patient trying to get MyChart access for recent PCP note History obtained from: Patient, stepdaughter - History of Present Illness HPI Comment/Other: 89-year-old female who was in her usual state of health until about 4 days ago when she began to have upper respiratory infection symptoms. She was having sore throat and cough. She has not been running any fevers that she is aware of. She did a home COVID test 2 days ago in the morning when she said she just did not feel right. Her COVID test was positive. She called a family member who is a physician as she was unable to get in touch with her PCP and was placed on Paxlovid. She was only able to get the renal dosing for Paxlovid so that is what she is taking at this time. She denies any history of renal problems. Yesterday evening she had decreased appetite and then began to have copious nausea vomiting and diarrhea through the night. She states that she really does not like to vomit and therefore came to the hospital early this morning. She continues to have decreased appetite but has not had any additional episodes of vomiting since arrival at the hospital. She denies any blood in her stool she has not had any blood in her vomitus. She states that she did drink a lot of water yesterday evening as she felt that maybe she was slightly dehydrated. She also feels very fatigued. She has chronic cold intolerance this has been going on since she started the Eliquis several years ago. History - Past Medical History Cardiovascular: reports: Hypertension, High cholesterol Respiratory: reports: None Neuro: reports: None Endocrine/Autoimmune: reports: HyPOthyroidism GI: reports: None : reports: None. denies: Renal insuffiency HEENT: reports: None Psych: reports: None Musculoskeletal: reports: None Derm: reports: None MRSA Hx?: No - Past Surgical History General: reports: Cholecystectomy, Other (hysterectomy) - Family & Social History Family History: Mother: (mom lived to age 99), Father: CAD (age 67 of [place]) Family History Comment/Other: 2 children who are well and healthy. Living arrangement: At home Living Situation: With spouse/s.o. Social History Notes: lives with spouse. independent in ADLs - Substance History Use: Uses substance without health or social issues: NONE - POLST Patient has POLST: No POLST Status: Full Code (has started this conversation with PCP) Meds/Allgy - Home Medications Home Medications: Ambulatory Orders Medication Instructions Recorded Confirmed Atenolol 50 mg PO DAILY 11/13/16 11/13/16 Levothyroxine [Synthroid] 100 mcg PO DAILY 11/13/16 11/13/16 Simvastatin 10 mg PO DAILY 11/13/16 11/13/16 lisinopriL [Lisinopril] 40 mg PO DAILY 11/13/16 11/13/16 Apixaban [Eliquis] 5 mg PO BID 03/31/20 Amlodipine Besylate [Norvasc] 10 mg PO DAILY 05/08/24 Gabapentin [Neurontin] 05/08/24 - Allergies Allergies/Adverse Reactions: Allergies Allergy/AdvReac Type Severity Reaction Status Date / Time No Known Drug Allergies Allergy Verified 02/10/22 15:30 Review of Systems - Constitutional Constitutional: reports: Fatigue, Malaise, Weakness. denies: Fever - Eyes Eyes: denies: Pain, Irritation, Blurred vision - Ears, Nose & Throat Ears, Nose & Throat: denies: Ear pain - Cardiovascular Cariovascular: reports: Palpitations. denies: Irregular heart rate, Chest pain, Lightheadedness - Respiratory Respiratory: reports: Cough. denies: Sputum production, Wheezing, Hemoptysis - Gastrointestinal Gastrointestinal: reports: Abdominal pain (no pain now), Diarrhea. denies: Black stools, Bloody stools - Genitourinary Genitourinary: denies: Dysuria, Frequency - Musculoskeletal Musculoskeletal: denies: Muscle pain - Integumentary Integumentary: denies: Rash - Neurological Neurological: reports: General weakness. denies: Focal weakness, Headache - Psychiatric Psychiatric: denies: Depression, Anxiety - Endocrine Endocrine: reports: Intolerance to cold. denies: Polyuria - Hematologic/Lymphatic Hematologic/Lymphatic: denies: Anemia, Bruising - All Other Systems All Other Systems: reports: Reviewed and negative Prior Level of Functionality: independent with spouse who is also well for his age Exam - Vital Signs Reviewed Vital Signs: Yes Vital Signs: Vital Signs x48h Temp Pulse Resp BP Pulse Ox 05/08/24 06:27 70 16 132/94 H 98 05/08/24 04:08 36.9 C 68 14 126/96 H 100 - Physical Exam General Appearance: positive: No acute distress Eyes Bilateral: positive: Normal inspection ENT: positive: ENT inspection nml, Dry mucous membranes (slightly dry oral mucos a) Respiratory: positive: Chest non-tender, No respiratory distress, Breath sounds nml Cardiovascular: positive: Regular rate & rhythm Peripheral Pulses: positive: 2+ Abdomen: positive: Non-tender, Other (firmness in the lower abdomen to palpation) Back: positive: Nml inspection Skin: positive: Color nml Extremities: positive: Non-tender, Nml appearance, No pedal edema Neurologic/Psychiatric: positive: Oriented x3, CN's nml (2-12), Motor nml, Sensation nml Conclusion/Plan - Problem List (1) Hyponatremia Conclusion/Plan: No known history of hyponatremia. I am unable to see previous medical records. No known history of renal dysfunction. Her renal function labs are normal today. Sodium is 120. Will correct hyponatremia with fluid restriction of 1500 mL/day. I have ordered repeat sodium check for noon. This is likely acute as she was feeling well until 4 days ago. (2) COVID-19 Conclusion/Plan: She has a dry cough and sore throat. She is not hypoxic. Her lungs are clear to auscultation. She is having some nausea vomiting and diarrhea. She is fully vaccinated with her last COVID booster in July 2023. She was started on PAxlovid, and has taken 3/10 doses thus far. I have asked step daughter to bring in home medication and we will continue the course. (3) High blood pressure Conclusion/Plan: Outpatient medication is listed as lisinopril. She is normotensive in the emergency department having not taken her medications. I will monitor her blood pressure and restart outpatient medications as indicated. Qualifiers: Hypertension type: unspecified secondary hypertension Qualified Code(s): I15.9 - Secondary hypertension, unspecified; I15 - Secondary hypertension (4) Hyperlipemia Conclusion/Plan: Restart home medications. 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 PCP has recently changed her dosing for Eliquis, I suspect down to prophylactic dosing. PAtient states that she thinks she is getting 2.5 mg BID. Will confirm dosing, and continue. (6) Hypothyroid Conclusion/Plan: Restart home Synthroid once dose is confirmed. - Lab Results Fish Bones: 05/08/24 05:38 05/08/24 05:38
[2024-05-08 12:22] LABS: CALCIUM 8.8 mg/dL (8.5-10.3); CREATININE 0.7 mg/dL (0.6-1.3); POTASSIUM 3.7 mmol/L (3.5-4.5)
[2024-05-08] MEDS ORDERED: DESMOPRESSIN 2 MCG in SODIUM CHLORIDE 0.9% 50 ML IV ONE (12:25)
[2024-05-08] MEDS: SODIUM CHLORIDE FLUSH 0.9% 10 ML SYRINGE IVP SCH (13:02)
[2024-05-08] MEDS: DESMOPRESSIN 4 MCG/ML AMP IVP ONE (13:03)
[2024-05-08] MEDS: DEXTROSE 5% 250 ML IV SCH (13:06)
[2024-05-08] MEDS: PAXLOVID PO SCH (15:03)
[2024-05-08] MEDS: APIXABAN 2.5 MG TABLET PO SCH (20:59)
[2024-05-09 05:31] LABS: BASOPHILS % (AUTO) 0.3 %; HCT - HEMATOCRIT 33.3 % (37.0-47.0); HGB - HEMOGLOBIN 11.3 g/dL (12.0-16.0); LYMPHOCYTES # (AUTO) 1.5 10^3/uL (1.5-3.5); LYMPHOCYTES % (AUTO) 47.8 %; MEAN CORPUSCULAR HEMOGLOBIN 31.1 pg (27.0-31.0); MEAN CORPUSCULAR HGB CONC 33.9 g/dL (32.0-36.0); MEAN CORPUSCULAR VOLUME 91.7 fL (81.0-99.0); MEAN PLATELET VOLUME 10.6 fL (7.9-10.8); MONOCYTES # (AUTO) 0.4 10^3/uL (0.0-1.0); MONOCYTES % (AUTO) 13.1 %; NEUTROPHILS # (AUTO) 1.2 10^3/uL (1.5-6.6); NEUTROPHILS % (AUTO) 37.5 %; PLT - PLATELET COUNT 130 10^3/uL (130-450); RED BLOOD COUNT 3.63 10^6/uL (4.20-5.40); RED CELL DISTRIBUTION WIDTH 11.9 % (12.0-15.0); WHITE BLOOD COUNT 3.1 x10^3/uL (4.8-10.8)
[2024-05-09 06:00] LABS: CALCIUM 8.7 mg/dL (8.5-10.3); CREATININE 0.7 mg/dL (0.6-1.3); POTASSIUM 3.3 mmol/L (3.5-4.5)
[2024-05-09] MEDS: SODIUM CHLORIDE 1 GM TABLET PO SCH ×2 (08:00→14:22)
[2024-05-09] MEDS: PROCHLORPERAZINE 10 MG/2 ML VIAL IVP PRN (08:10)
[2024-05-09] MEDS: NS W/40 MEQ KCL 1,000 ML IV SCH (09:15)
--- NOTE | 2024-05-09 11:47 | PHARMACY PROGRESS NOTE ---
- Best Possible Medication History Admit Date and Time: 05/08/24 0822 Processed by: Pharmacy Medications reviewed in ED?: No Medication History completed: Yes Patient Interview: Completed (by manager of pharmacyKirk) Secondary Source(s): Physician records, Insurance records Medication adjustments noted due to DDIs with Paxlovid. Simvastatin on hold during treatment, levothyroxine decreased from 100 mcg to 75 mcg, and apixaban decreased from 5 mg bid to 2.5 mg bid. As the person ultimately responsible for medication therapy, providers are able to order a medication from an existing home medication list in [facility] via the "Reconcile Routine" prior to Confirmation of that medication by application support consultant. Such practice is discouraged except when the physician, in their clinical judgment, deems that a medical need exists for a medication without regard to previous use.
--- NOTE | 2024-05-09 17:24 | PROVIDER PROGRESS NOTE ---
Assessment/Plan - Problem List (1) Hyponatremia Assessment/Plan: Etiology of hyponatremia is not clear. Continue fluid restriction of 1500 mL per day by mouth Check urine sodium and urine osmolality. Goal is to increase serum sodium by 4-6 mEq over 24 hours. Continue to monitor serum sodium every 4 hours and as needed. (2) COVID-19 Conclusion/Plan: Patient has a diagnosis of COVID-19 and is currently on Paxlovid. Patient to complete course of Paxlovid (3) High blood pressure Conclusion/Plan: Treatment initiated with atenolol 25 mg daily. Increase dose as tolerated. Qualifiers: Hypertension type: unspecified secondary hypertension Qualified Code(s): I15.9 - Secondary hypertension, unspecified; I15 - Secondary hypertension (4) Hyperlipemia Conclusion/Plan: Hold statin while in the hospital. (5) DVT (deep venous thrombosis) Conclusion/Plan: Patient has a history of left lower extremity DVT. She has completed a 3-month course of Eliquis. Recommend referral to a complex director or gray mixing operator to evaluate for the etiology of her thrombosis and to discuss whether continuing anticoagulation is warranted. (6) Hypothyroid Conclusion/Plan: Levothyroxine 75 mcg daily - Current Meds Current Meds: Current Medications Generic Name Dose Route Start Last Admin Trade Name Freq PRN Reason Stop Dose Admin Apixaban 2.5 mg 05/08/24 21:00 05/09/24 08:00 Apixaban 2.5 Mg Tablet PO 2.5 mg BID LUPILLO Administration Potassium Chloride/Sodium Chloride 1,000 mls @ 100 mls/hr 05/09/24 09:00 05/09/24 09:15 Normal Saline 0.9% W/40 Meq Kcl IV 05/09/24 18:59 100 mls/hr .Q10H LUPILLO Administration Paxlovid 150 Mg/ 1 each 05/08/24 15:00 05/09/24 09:23 100 Mg Dose Pack PO 05/10/24 21:01 1 each BID LUPILLO Administration Prochlorperazine Edisylate 10 mg 05/08/24 16:59 05/09/24 08:10 Prochlorperazine 10 Mg/2 Ml Vial IVP 10 mg Q6HR PRN Administration Nausea / Vomiting Sodium Chloride 10 ml 05/08/24 09:00 05/09/24 08:05 Sodium Chloride Flush 0.9% 10 Ml Syringe IVP 10 ml 0100,0900,1700 LUPILLO Administration - Lab Result Fish Bone Diagrams: 05/09/24 05:05 05/09/24 16:47 - Additional Planning My Orders: My Active Orders 05/09/24 09:00 Ns W/40 Meq KCl [Normal Saline 0.9% W/40 Meq KCl] 1,000 ml IV 100 mls/hr 05/09/24 21:00 SODIUM [CHEM] Q4H 05/10/24 01:00 SODIUM [CHEM] Q4H 05/10/24 09:00 Furosemide [Lasix] 20 mg PO DAILY Subjective - Subjective Patient Reports: Other (Alert. Complains of headache this morning but has resolved. Reports she does not have much of an appetite. She has no other complaints at this time.) Objective Vital Signs: Vital Signs - 24 hr 05/08/24 05/09/24 05/09/24 21:00 01:00 04:20 Temperature 36.9 C 37.1 C 36.7 C Heart Rate [ 64 Brachial] Heart Rate [ 68 68 Monitoring electrodes] Respiratory 20 16 15 Rate Blood Pressure 136/77 H 133/81 H 141/75 H [Right Brachial artery] O2 Saturation 96 95 94 05/09/24 05/09/24 05/09/24 08:06 13:27 16:02 Temperature 37.2 C 36.7 C 36.4 C L Heart Rate [ 73 73 73 Brachial] Heart Rate [ Monitoring electrodes] Respiratory 16 18 18 Rate Blood Pressure 148/84 H 138/74 H 156/82 H [Right Brachial artery] O2 Saturation 100 96 95 Oxygen O2 Source Room air I&O (Last 24 Hrs): Intake and Output Totals x24h 05/07/24 05/08/24 05/09/24 23:59 23:59 23:59 Intake Total 2800 697 Output Total 80 Balance 2720 697 General: Alert, Oriented x3, No acute distress HEENT: Atraumatic Neck: No JVD Neuro: Alert, Non Focal Cardiovascular: Other (Positive S1-S2 no extra heart sounds.) Respiratory: Other (Good air exchange in all lung fagan no wheezing no crackles.) Abdomen: Other (Soft nontender nondistended positive bowel sounds.) Extremities: No cyanosis, No edema Skin: No rashes - Results Results: Laboratory Results WBC 3.1 x10^3/uL (4.8-10.8) L 05/09/24 05:05 RBC 3.63 10^6/uL (4.20-5.40) L 05/09/24 05:05 Hgb 11.3 g/dL (12.0-16.0) L 05/09/24 05:05 Hct 33.3 % (37.0-47.0) L 05/09/24 05:05 MCV 91.7 fL (81.0-99.0) 05/09/24 05:05 MCH 31.1 pg (27.0-31.0) H 05/09/24 05:05 MCHC 33.9 g/dL (32.0-36.0) 05/09/24 05:05 RDW 11.9 % (12.0-15.0) L 05/09/24 05:05 Plt Count 130 10^3/uL (130-450) 05/09/24 05:05 MPV 10.6 fL (7.9-10.8) 05/09/24 05:05 Neut # (Auto) 1.2 10^3/uL (1.5-6.6) L 05/09/24 05:05 Lymph # (Auto) 1.5 10^3/uL (1.5-3.5) 05/09/24 05:05 [place] # (Auto) 0.4 10^3/uL (0.0-1.0) 05/09/24 05:05 Eos # (Auto) 0.0 10^3/uL (0.0-0.7) 05/09/24 05:05 Baso # (Auto) 0.0 10^3/uL (0.0-0.1) 05/09/24 05:05 Absolute Nucleated RBC 0.00 x10^3/uL 05/09/24 05:05 Nucleated RBC % 0.0 /100WBC 05/09/24 05:05 Manual Slide Review Indicated 05/08/24 04:25 Platelet Estimate NORMAL (130-450,000) (NORMAL) 05/08/24 04:25 Platelet Morphology NORMAL APPEARANCE (NORMAL) 05/08/24 04:25 Sodium 121 mmol/L (135-145) L 05/09/24 16:47 Potassium 3.3 mmol/L (3.5-4.5) L 05/09/24 05:05 Chloride 90 mmol/L (101-111) L 05/09/24 05:05 Carbon Dioxide 23 mmol/L (21-32) 05/09/24 05:05 Anion Gap 7.0 (6-13) 05/09/24 05:05 BUN 8 mg/dL (6-20) 05/09/24 05:05 Creatinine 0.7 mg/dL (0.6-1.3) 05/09/24 05:05 Estimated GFR (MDRD) 79 (>89) L 05/09/24 05:05 Glucose 91 mg/dL (74-104) 05/09/24 05:05 Calcium 8.7 mg/dL (8.5-10.3) 05/09/24 05:05 Total Bilirubin 0.6 mg/dL (0.2-1.0) 05/08/24 05:38 AST 23 IU/L (10-42) 05/08/24 05:38 ALT 11 IU/L (10-60) 05/08/24 05:38 Alkaline Phosphatase 51 IU/L (42-121) 05/08/24 05:38 Total Protein 5.8 g/dL (6.4-8.9) L 05/08/24 05:38 Albumin 3.6 g/dL (3.2-5.5) 05/08/24 05:38 Globulin 2.2 g/dL (2.1-4.2) 05/08/24 05:38 Albumin/Globulin Ratio 1.6 (1.0-2.2) 05/08/24 05:38 Lipase 53 U/L (11-82) 05/08/24 05:38 Urine Color YELLOW 05/08/24 05:31 Urine Clarity CLEAR (CLEAR) 05/08/24 05:31 Urine pH 7.5 PH (5.0-7.5) 05/08/24 05:31 Ur Specific [place] 1.015 (1.002-1.030) 05/08/24 05:31 Urine Protein NEGATIVE mg/dL (NEGATIVE) 05/08/24 05:31 Urine Glucose (UA) NEGATIVE mg/dL (NEGATIVE) 05/08/24 05:31 Urine Ketones TRACE mg/dL (NEGATIVE) 05/08/24 05:31 Urine Occult Blood NEGATIVE (NEGATIVE) 05/08/24 05:31 Urine Nitrite NEGATIVE (NEGATIVE) 05/08/24 05:31 Urine Bilirubin NEGATIVE (NEGATIVE) 05/08/24 05:31 Urine Urobilinogen 0.2 (NORMAL) E.U./dL (NORMAL) 05/08/24 05:31 Ur Leukocyte Esterase NEGATIVE (NEGATIVE) 05/08/24 05:31 Ur Microscopic Review NOT INDICATED 05/08/24 05:31 Urine Culture Comments NOT INDICATED 05/08/24 05:31
[2024-05-09] MEDS: atenoloL 25 MG TABLET PO SCH (17:51)
--- NOTE | 2024-05-09 22:21 | Ultrasound Report ---
PROCEDURE: Duplex Ext Veins Left INDICATIONS: LLE DVT with PE history TECHNIQUE: Real-time imaging, as well as color and pulse Doppler interrogation, were performed of the lower extr emity deep veins from the inguinal ligament to the popliteal fossa. Attempted visualization of the ca lf veins was performed. COMPARISON: None. FINDINGS: The deep veins are normally compressible, and free of intraluminal thrombus. Color and pu lse Doppler demonstrate normal phasic intraluminal flow. There is normal augmentation response to di stal compression maneuver. Of note, the peroneal/posterior tibial veins are not well seen. IMPRESSION: No deep venous thrombosis of the visualized lower extremity. Of note, the peroneal/posterior tibial v eins are not well seen. Reviewed by: Vaishali Owens MD on 05/09/2024 10:20 PM PDT Approved by: Vaishali Owens MD on 05/09/2024 10:20 PM PDT Station ID: [id number]
[2024-05-10 05:55] LABS: BASOPHILS % (AUTO) 0.4 %; EOSINOPHILS # (AUTO) 0.1 10^3/uL (0.0-0.7); EOSINOPHILS % (AUTO) 2.2 %; HCT - HEMATOCRIT 34.7 % (37.0-47.0); HGB - HEMOGLOBIN 12.1 g/dL (12.0-16.0); LYMPHOCYTES # (AUTO) 1.6 10^3/uL (1.5-3.5); LYMPHOCYTES % (AUTO) 34.8 %; MEAN CORPUSCULAR HEMOGLOBIN 31.7 pg (27.0-31.0); MEAN CORPUSCULAR HGB CONC 34.9 g/dL (32.0-36.0); MEAN CORPUSCULAR VOLUME 90.8 fL (81.0-99.0); MEAN PLATELET VOLUME 10.9 fL (7.9-10.8); MONOCYTES # (AUTO) 0.7 10^3/uL (0.0-1.0); MONOCYTES % (AUTO) 14.6 %; NEUTROPHILS # (AUTO) 2.2 10^3/uL (1.5-6.6); PLT - PLATELET COUNT 136 10^3/uL (130-450); RED BLOOD COUNT 3.82 10^6/uL (4.20-5.40); RED CELL DISTRIBUTION WIDTH 11.9 % (12.0-15.0); WHITE BLOOD COUNT 4.7 x10^3/uL (4.8-10.8)
[2024-05-10 06:09] LABS: CALCIUM 8.8 mg/dL (8.5-10.3); CREATININE 0.6 mg/dL (0.6-1.3); POTASSIUM 3.6 mmol/L (3.5-4.5)
[2024-05-10] MEDS: LEVOTHYROXINE 75 MCG TABLET PO SCH (07:45)
--- NOTE | 2024-05-10 08:53 | PROVIDER PROGRESS NOTE ---
Subjective - Prog Note Date Prog Note Date: 05/10/24 Prog Note Time: 08:50 - Subjective Pt reports feeling: Improved Subjective: She is feeling better overall. Wants to get home to family that is visiting from out of town. her is also sick at home with Covid, but is doing well, and improving on his own. Current Medications - Current Medications Current Medications: Medications Acetaminophen (Acetaminophen 325 Mg Tablet) 650 mg PO Q4HR PRN PRN Reason: Pain 1 to 4, or Fever Apixaban (Apixaban 2.5 Mg Tablet) 2.5 mg PO BID [facility] Last Admin: 05/09/24 20:54 Dose: 2.5 mg Atenolol (Atenolol 25 Mg Tablet) 25 mg PO ONCE [facility] Stop: 05/10/24 17:34 Last Admin: 05/09/24 17:51 Dose: 25 mg Furosemide (Furosemide 20 Mg Tablet) 20 mg PO DAILY [facility] Levothyroxine Sodium (Levothyroxine 75 Mcg Tablet) 75 mcg PO QDAC [facility] Last Admin: 05/10/24 07:45 Dose: 75 mcg Ondansetron HCl (Ondansetron Odt 4 Mg Tablet) 4 mg TL Q6HR PRN PRN Reason: Nausea / Vomiting Patient Own Medication (Paxlovid 150 Mg/100 Mg Dose Pack) 1 each PO BID [facility] Stop: 05/10/24 21:01 Last Admin: 05/09/24 20:54 Dose: 1 each Prochlorperazine Edisylate (Prochlorperazine 10 Mg/2 Ml Vial) 10 mg IVP Q6HR PRN PRN Reason: Nausea / Vomiting Last Admin: 05/09/24 08:10 Dose: 10 mg Discontinued Medications Sodium Chloride (Sodium Chloride 1 Gm Tablet) 2 gm PO DAILY [facility] Last Admin: 05/09/24 08:53 Dose: Not Given Objective - Vital Signs/Intake & Output Vital Signs: Vital Signs x48h Temp Pulse Resp BP Pulse Ox 05/10/24 08:04 37.1 C 70 18 159/86 H 94 05/10/24 02:12 36.8 C 67 16 143/78 H 94 Intake & Output: Intake & Output 05/07/24 05/08/24 05/09/24 05/10/24 23:59 23:59 23:59 23:59 Intake Total 2800 1984 Output Total 80 50 375 Balance 2720 6834 -375 - Objective General Appearance: positive: No acute distress - Lab Results Fish Bones: 05/10/24 05:17 05/10/24 13:04 Other Labs: Lab Results x24hrs 05/10/24 05/10/24 05/10/24 Range/Units 05:17 05:17 01:16 WBC 4.7 L (4.8-10.8) x10^3/uL RBC 3.82 L (4.20-5.40) 10^6/uL Hgb 12.1 (12.0-16.0) g/dL Hct 34.7 L (37.0-47.0) % MCV 90.8 (81.0-99.0) fL MCH 31.7 H (27.0-31.0) pg MCHC 34.9 (32.0-36.0) g/dL RDW 11.9 L (12.0-15.0) % Plt Count 136 (130-450) 10^3/uL MPV 10.9 H (7.9-10.8) fL Neut # (Auto) 2.2 (1.5-6.6) 10^3/uL Lymph # (Auto) 1.6 (1.5-3.5) 10^3/uL [place] # (Auto) 0.7 (0.0-1.0) 10^3/uL Eos # (Auto) 0.1 (0.0-0.7) 10^3/uL Baso # (Auto) 0.0 (0.0-0.1) 10^3/uL Absolute Nucleated RBC 0.00 x10^3/uL Nucleated RBC % 0.0 /100WBC Sodium 122 L 123 L (135-145) mmol/L Potassium 3.6 (3.5-4.5) mmol/L Chloride 94 L (101-111) mmol/L Carbon Dioxide 23 (21-32) mmol/L Anion Gap 5.0 L (6-13) BUN 11 (6-20) mg/dL Creatinine 0.6 (0.6-1.3) mg/dL Estimated GFR (MDRD) 94 (>89) Glucose 88 (74-104) mg/dL Calcium 8.8 (8.5-10.3) mg/dL Urine Sodium mmol/L 05/09/24 05/09/24 05/09/24 Range/Units 21:45 20:58 16:47 WBC (4.8-10.8) x10^3/uL RBC (4.20-5.40) 10^6/uL Hgb (12.0-16.0) g/dL Hct (37.0-47.0) % MCV (81.0-99.0) fL MCH (27.0-31.0) pg MCHC (32.0-36.0) g/dL RDW (12.0-15.0) % Plt Count (130-450) 10^3/uL MPV (7.9-10.8) fL Neut # (Auto) (1.5-6.6) 10^3/uL Lymph # (Auto) (1.5-3.5) 10^3/uL [place] # (Auto) (0.0-1.0) 10^3/uL Eos # (Auto) (0.0-0.7) 10^3/uL Baso # (Auto) (0.0-0.1) 10^3/uL Absolute Nucleated RBC x10^3/uL Nucleated RBC % /100WBC Sodium 122 L 121 L (135-145) mmol/L Potassium (3.5-4.5) mmol/L Chloride (101-111) mmol/L Carbon Dioxide (21-32) mmol/L Anion Gap (6-13) BUN (6-20) mg/dL Creatinine (0.6-1.3) mg/dL Estimated GFR (MDRD) (>89) Glucose (74-104) mg/dL Calcium (8.5-10.3) mg/dL Urine Sodium 103.5 mmol/L 05/09/24 05/09/24 Range/Units 13:11 09:16 WBC (4.8-10.8) x10^3/uL RBC (4.20-5.40) 10^6/uL Hgb (12.0-16.0) g/dL Hct (37.0-47.0) % MCV (81.0-99.0) fL MCH (27.0-31.0) pg MCHC (32.0-36.0) g/dL RDW (12.0-15.0) % Plt Count (130-450) 10^3/uL MPV (7.9-10.8) fL Neut # (Auto) (1.5-6.6) 10^3/uL Lymph # (Auto) (1.5-3.5) 10^3/uL [place] # (Auto) (0.0-1.0) 10^3/uL Eos # (Auto) (0.0-0.7) 10^3/uL Baso # (Auto) (0.0-0.1) 10^3/uL Absolute Nucleated RBC x10^3/uL Nucleated RBC % /100WBC Sodium 119 L* 120 L* (135-145) mmol/L Potassium (3.5-4.5) mmol/L Chloride (101-111) mmol/L Carbon Dioxide (21-32) mmol/L Anion Gap (6-13) BUN (6-20) mg/dL Creatinine (0.6-1.3) mg/dL Estimated GFR (MDRD) (>89) Glucose (74-104) mg/dL Calcium (8.5-10.3) mg/dL Urine Sodium mmol/L Assessment/Plan - Problem List (1) Hyponatremia Impression: Differential dx is side effects from either Covid or Paxlovid. 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 Corrected initially quite quickly and now has slowed after administration of desmopressin afternoon 05/08. Na 122 this AM (low). Urine sodium is 103.5 (elevated) yesterday. urine spec grav is normal (1.015). I do not have urine Osm. She is not on any diuretics until yesterday when Lasix was instituted. none as outpatient. Goal for correction will be a Na of 128 today. recheck level at noon is 124. This is adequate. Will check again at 1800 and again at midnight. She was on lasix yesterday when urine Na was checked, therefore could be high due to that. (2) COVID-19 Impression: on Paxlovid, home supply, dose 06/12. No hyoxia, minimal cough. She has some fatigue. (3) High blood pressure Impression: Blood pressure 159/86 this AM. Getting atenolol 25mg daily here. at home is one atenolol 50mg daily, lisinopril 40mg daily and amlodipine 10mgdaily. Will restart amlodipine. Qualifiers: Hypertension type: unspecified secondary hypertension Qualified Code(s): I15.9 - Secondary hypertension, unspecified; I15 - Secondary hypertension (4) Hyperlipemia Impression: Will restart home statin. (5) DVT (deep venous thrombosis) Impression: She has been on Eliquis for some time. dosing reduced to 2.5 while on Paxlovid. Venous duplex LLE ( laterality of DVT) was checked. there is no remaining clot. This is first lifetime episode of DVT, but it was not provoked. She is somewhat reticent to go off apixiban therapy. She will discuss this further with her PCP, and consider evaluation by hemtology for hypercoagulable state. (6) Hypothyroid Impression: home medication restarted. Disposition: Home 1-2 days when Na adequately corrected. ACP: dicussed with Patient briefly at admission and then again today on hospital day 3. She has been introduced to the POLST form by her primary care provider. She has this at home and she is waiting to discuss it with her children. She was planning to do that this weekend as both of them were coming into town for the holiday but unfortunately got sick and wound up hospitalized. She does not wish to fill out a POLST form prior to discussing with her children
[2024-05-10] MEDS: SODIUM CHLORIDE 1 GM TABLET PO ONE (09:02)
[2024-05-10] MEDS: FUROSEMIDE 20 MG TABLET PO SCH (09:02)
[2024-05-11 06:06] LABS: BASOPHILS % (AUTO) 0.4 %; EOSINOPHILS # (AUTO) 0.1 10^3/uL (0.0-0.7); EOSINOPHILS % (AUTO) 2.1 %; HCT - HEMATOCRIT 36.8 % (37.0-47.0); HGB - HEMOGLOBIN 12.5 g/dL (12.0-16.0); LYMPHOCYTES # (AUTO) 2.1 10^3/uL (1.5-3.5); LYMPHOCYTES % (AUTO) 44.3 %; MEAN CORPUSCULAR HEMOGLOBIN 31.5 pg (27.0-31.0); MEAN CORPUSCULAR VOLUME 92.7 fL (81.0-99.0); MEAN PLATELET VOLUME 10.5 fL (7.9-10.8); MONOCYTES # (AUTO) 0.7 10^3/uL (0.0-1.0); MONOCYTES % (AUTO) 14.1 %; NEUTROPHILS # (AUTO) 1.8 10^3/uL (1.5-6.6); NEUTROPHILS % (AUTO) 38.9 %; PLT - PLATELET COUNT 135 10^3/uL (130-450); RED BLOOD COUNT 3.97 10^6/uL (4.20-5.40); WHITE BLOOD COUNT 4.7 x10^3/uL (4.8-10.8)
[2024-05-11 06:17] LABS: CALCIUM 9.2 mg/dL (8.5-10.3); CREATININE 0.9 mg/dL (0.6-1.3); POTASSIUM 3.6 mmol/L (3.5-4.5)
[2024-05-11] MEDS: SODIUM CHLORIDE 0.9% 1,000 ML IV SCH ×2 (08:28→18:11)
[2024-05-11] MEDS: amLODIPine 5 MG TABLET PO SCH (08:29)
[2024-05-11] MEDS: SODIUM CHLORIDE 1 GM TABLET PO SCH (08:29)
[2024-05-11 14:13] LABS: B. PARAPERTUSSIS- RESP PCR PAN NOT DETECTED; B. PERTUSSIS- RESP PCR PANEL NOT DETECTED; C. PNEUMONIAE- RESP PCR PANEL NOT DETECTED; CORONAVIRUS 229E-RESP PCR NOT DETECTED; CORONAVIRUS HKU1-RESP PCR NOT DETECTED; CORONAVIRUS NL63-RESP PCR NOT DETECTED; CORONAVIRUS OC43-RESP PCR NOT DETECTED; HUMAN METAPNEUMOVIRUS NOT DETECTED; INFLUENZA A- RESP PCR PANEL NOT DETECTED; INFLUENZA B - RESP PCR PANEL NOT DETECTED; M. PNEUMONIAE- RESP PCR PANEL NOT DETECTED; PARAINFLUENZA VIRUS 1 NOT DETECTED; PARAINFLUENZA VIRUS 2 NOT DETECTED; PARAINFLUENZA VIRUS 3 NOT DETECTED; PARAINFLUENZA VIRUS 4 NOT DETECTED; RHINOVIRUS/ENTEROVIRUS NOT DETECTED; RSV- RESP PCR PANEL NOT DETECTED
[2024-05-11 14:15] LABS: SARS-CoV-2 -RESP PCR PANEL DETECTED
--- NOTE | 2024-05-11 14:37 | PROVIDER PROGRESS NOTE ---
Subjective - Prog Note Date Prog Note Date: 05/11/24 Prog Note Time: 14:32 - Subjective Pt reports feeling: Improved Subjective: Feels better. She still has some fatigue associated with her COVID symptomatology but otherwise does not have any weakness. she has been up in the room showering independently. She has been tolerating regular diet. Current Medications - Current Medications Current Medications: Medications Sodium Chloride (Normal Saline 0.9%) 1,000 mls @ 100 mls/hr IV .Q10H [facility] Levothyroxine Sodium (Levothyroxine 75 Mcg Tablet) 75 mcg PO QDAC [facility] Last Admin: 05/11/24 07:21 Dose: 75 mcg Sodium Chloride (Sodium Chloride 1 Gm Tablet) 2 gm PO BID [facility] Last Admin: 05/11/24 08:29 Dose: 2 gm Acetaminophen (Acetaminophen 325 Mg Tablet) 650 mg PO Q4HR PRN PRN Reason: Pain 1 to 4, or Fever Amlodipine Besylate (Amlodipine 5 Mg Tablet) 10 mg PO DAILY [facility] Last Admin: 05/11/24 08:29 Dose: 10 mg Apixaban (Apixaban 2.5 Mg Tablet) 2.5 mg PO BID [facility] Last Admin: 05/11/24 08:29 Dose: 2.5 mg Famotidine (Famotidine 20 Mg Tablet) 20 mg PO DAILY [facility] Ondansetron HCl (Ondansetron Odt 4 Mg Tablet) 4 mg TL Q6HR PRN PRN Reason: Nausea / Vomiting Prochlorperazine Edisylate (Prochlorperazine 10 Mg/2 Ml Vial) 10 mg IVP Q6HR PRN PRN Reason: Nausea / Vomiting Last Admin: 05/09/24 08:10 Dose: 10 mg Objective - Vital Signs/Intake & Output Vital Signs: Vital Signs x48h Temp Pulse Resp BP Pulse Ox 05/11/24 08:18 37.1 C 77 18 150/80 H 95 Intake & Output: Intake & Output 05/08/24 05/09/24 05/10/24 05/11/24 23:59 23:59 23:59 23:59 Intake Total 2800 1984 870 130 Output Total 80 50 700 100 Balance 2720 1934 170 30 - Objective General Appearance: positive: No acute distress Eyes Bilateral: positive: Normal inspection ENT: positive: ENT inspection nml Neck: positive: Nml inspection Respiratory: positive: Breath sounds nml Cardiovascular: positive: Regular rate & rhythm Abdomen: positive: Non-tender Skin: positive: Color nml Extremities: positive: Non-tender, No pedal edema Neurologic/Psychiatric: positive: Oriented x3 - Lab Results Fish Bones: 05/11/24 05:39 05/11/24 12:56 Other Labs: Lab Results x24hrs 05/11/24 05/11/24 05/11/24 Range/Units 12:56 12:30 05:39 WBC (4.8-10.8) x10^3/uL RBC (4.20-5.40) 10^6/uL Hgb (12.0-16.0) g/dL Hct (37.0-47.0) % MCV (81.0-99.0) fL MCH (27.0-31.0) pg MCHC (32.0-36.0) g/dL RDW (12.0-15.0) % Plt Count (130-450) 10^3/uL MPV (7.9-10.8) fL Neut # (Auto) (1.5-6.6) 10^3/uL Lymph # (Auto) (1.5-3.5) 10^3/uL [place] # (Auto) (0.0-1.0) 10^3/uL Eos # (Auto) (0.0-0.7) 10^3/uL Baso # (Auto) (0.0-0.1) 10^3/uL Absolute Nucleated RBC x10^3/uL Nucleated RBC % /100WBC Sodium 129 L 125 L (135-145) mmol/L Potassium 3.6 (3.5-4.5) mmol/L Chloride 95 L (101-111) mmol/L Carbon Dioxide 25 (21-32) mmol/L Anion Gap 5.0 L (6-13) BUN 11 (6-20) mg/dL Creatinine 0.9 (0.6-1.3) mg/dL Estimated GFR (MDRD) 59 L (>89) Glucose 91 (74-104) mg/dL Calcium 9.2 (8.5-10.3) mg/dL Nasal Adenovirus (PCR) NOT DETECTED Nasal B. parapertussis DNA (PCR) NOT DETECTED Nasal Coronavir 229E PCR NOT DETECTED Nasal Coronavir HKU1 PCR NOT DETECTED Nasal Coronavir NL63 PCR NOT DETECTED Nasal Coronavir OC43 PCR NOT DETECTED Nasal Enterovir/Rhinovir PCR NOT DETECTED Nasal Influenza B PCR NOT DETECTED Nasal Influenza A PCR NOT DETECTED Nasal Parainfluen 1 PCR NOT DETECTED Nasal Parainfluen 2 PCR NOT DETECTED Nasal Parainfluen 3 PCR NOT DETECTED Nasal Parainfluen 4 PCR NOT DETECTED Nasal RSV (PCR) NOT DETECTED Nasal B.pertussis DNA PCR NOT DETECTED Nasal C.pneumoniae (PCR) NOT DETECTED Brant Human Metapneumo PCR NOT DETECTED Nasal M.pneumoniae (PCR) NOT DETECTED Nasal SARS-CoV-2 (PCR) DETECTED A 05/11/24 05/11/24 05/10/24 Range/Units 05:39 00:23 17:59 WBC 4.7 L (4.8-10.8) x10^3/uL RBC 3.97 L (4.20-5.40) 10^6/uL Hgb 12.5 (12.0-16.0) g/dL Hct 36.8 L (37.0-47.0) % MCV 92.7 (81.0-99.0) fL MCH 31.5 H (27.0-31.0) pg MCHC 34.0 (32.0-36.0) g/dL RDW 12.0 (12.0-15.0) % Plt Count 135 (130-450) 10^3/uL MPV 10.5 (7.9-10.8) fL Neut # (Auto) 1.8 (1.5-6.6) 10^3/uL Lymph # (Auto) 2.1 (1.5-3.5) 10^3/uL [place] # (Auto) 0.7 (0.0-1.0) 10^3/uL Eos # (Auto) 0.1 (0.0-0.7) 10^3/uL Baso # (Auto) 0.0 (0.0-0.1) 10^3/uL Absolute Nucleated RBC 0.00 x10^3/uL Nucleated RBC % 0.0 /100WBC Sodium 125 L 125 L (135-145) mmol/L Potassium (3.5-4.5) mmol/L Chloride (101-111) mmol/L Carbon Dioxide (21-32) mmol/L Anion Gap (6-13) BUN (6-20) mg/dL Creatinine (0.6-1.3) mg/dL Estimated GFR (MDRD) (>89) Glucose (74-104) mg/dL Calcium (8.5-10.3) mg/dL Nasal Adenovirus (PCR) Nasal B. parapertussis DNA (PCR) Nasal Coronavir 229E PCR Nasal Coronavir HKU1 PCR Nasal Coronavir NL63 PCR Nasal Coronavir OC43 PCR Nasal Enterovir/Rhinovir PCR Nasal Influenza B PCR Nasal Influenza A PCR Nasal Parainfluen 1 PCR Nasal Parainfluen 2 PCR Nasal Parainfluen 3 PCR Nasal Parainfluen 4 PCR Nasal RSV (PCR) Nasal B.pertussis DNA PCR Nasal C.pneumoniae (PCR) Brant Human Metapneumo PCR Nasal M.pneumoniae (PCR) Nasal SARS-CoV-2 (PCR) Assessment/Plan - Problem List (1) Hyponatremia Impression: Differential dx is side effects from either Covid or Paxlovid. 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 Corrected initially quite quickly and now has slowed after administration of desmopressin afternoon 05/08. Na 129 this afternoon. She is not on any diuretics until 05/09 when Lasix was instituted. none as o utpatient. recheck Na in AM, anticipate correction and dc to home. (2) COVID-19 Impression: finished paxlovid. No hyoxia, minimal cough. She has some fatigue. (3) High blood pressure Impression: Blood pressure 140's-150's here. Getting atenolol 25mg daily and amlodipine 10mg daily here. Will add back Lisinopril. Qualifiers: Hypertension type: unspecified secondary hypertension Qualified Code(s): I15.9 - Secondary hypertension, unspecified; I15 - Secondary hypertension (4) Hyperlipemia Impression: Will restart home statin. (5) DVT (deep venous thrombosis) Impression: She has been on Eliquis for some time. dosing reduced to 2.5 while on Paxlovid and for about one week after. Venous duplex LLE ( laterality of DVT) was checked. there is no remaining clot. This is first lifetime episode of DVT, but it was not provoked. She is somewhat reticent to go off apixiban therapy. She will discuss this further with her PCP, and consider evaluation by hemtology for hypercoagulable state. (6) Hypothyroid Impression: home medication restarted. Disposition: Home tomorrow, assuming sodium continues to climb. (3) High blood pressure Qualifiers: Qualified Code(s): I15.9 - Secondary hypertension, unspecified; I15 - Secondary hypertension
[2024-05-11] MEDS: FAMOTIDINE 20 MG TABLET PO SCH (21:03)
[2024-05-12 05:58] LABS: BASOPHILS % (AUTO) 0.3 %; EOSINOPHILS # (AUTO) 0.2 10^3/uL (0.0-0.7); EOSINOPHILS % (AUTO) 2.1 %; HCT - HEMATOCRIT 36.6 % (37.0-47.0); LYMPHOCYTES # (AUTO) 2.4 10^3/uL (1.5-3.5); MEAN CORPUSCULAR HGB CONC 32.8 g/dL (32.0-36.0); MEAN CORPUSCULAR VOLUME 94.6 fL (81.0-99.0); MEAN PLATELET VOLUME 10.6 fL (7.9-10.8); MONOCYTES # (AUTO) 0.8 10^3/uL (0.0-1.0); MONOCYTES % (AUTO) 11.1 %; NEUTROPHILS # (AUTO) 3.7 10^3/uL (1.5-6.6); NEUTROPHILS % (AUTO) 52.2 %; PLT - PLATELET COUNT 148 10^3/uL (130-450); RED BLOOD COUNT 3.87 10^6/uL (4.20-5.40); RED CELL DISTRIBUTION WIDTH 12.5 % (12.0-15.0); WHITE BLOOD COUNT 7.1 x10^3/uL (4.8-10.8)
[2024-05-12 06:15] LABS: CREATININE 0.8 mg/dL (0.6-1.3); POTASSIUM 3.5 mmol/L (3.5-4.5)
--- NOTE | 2024-05-12 07:41 | Discharge Plan ---
Discharge Plan Problem Reviewed?: Yes Disposition: Home, Self Care Condition: Good Diet: Regular Activity Restrictions: No Restrictions Shower Restrictions: No Driving Restrictions: No Weight Bearing: Full Weight Instruction Topics: Hyponatremia Dc, ED Nausea Vomiting, COVID-19 [facility] Health Concerns: You came into the hospital with extremely low sodium. It took some time to adjust your sodium and get it to the right place but it is at 132 this morning. Normal range would be between 135 and 145. In the future if you feel like you need to hydrate well it might be a good idea to add some electrolyte hydration to your oral hydration solutions. Gatorade is good, also there is a powder called liquid IV that has good electrolytes in it. You might like the taste of that. It is unclear exactly what caused her hyponatremia. I do not think it was the COVID infection, but I think it is possible that the Paxlovid could have contributed to the hyponatremia. You did not have a blood clot in your leg which is good news. As we talked about your primary care provider want you to stay on Eliquis. It is a good idea to keep the dose at 2.5 twice a day until about 5 days after you have finished the Paxlovid. Please call Dr. Oliver for follow-up. With regards to your COVID, your PCR test was still positive yesterday. What this means is that you have some of the DNA from the virus still in your respiratory passages. It is possible that your antigen test, which is the kind that you take at home could be negative. When your antigen test is negative it means you are not shedding that much virus and it is reasonable to think that you are not transmitting the virus to other people. I recommend that you mask in public until your antigen test is negative. This fall you should get your COVID booster like you always do as well as a flu shot. Dr. Oliver can help you get this done or they are available at most pharmacies. Additional Instructions or Follow Up instructions: You were seen in the emergency department for vomiting and diarrhea. If you're not having fever you can take over the counter immodium for diarrhea. You should get pedialyte, adult electrolyte solution, or gatorade from the pharmacy and try to stay well hydrated. Antinausea medicine was sent to your [facility] pharmacy. Please follow-up with your primary care provider and return to the emergency department if you have any new or worsening symptoms or other concerns. No Smoking: If you smoke, Please STOP! Call for help. Follow-up with: SG OLIVER MD [Primary Care Provider] -
--- NOTE | 2024-05-12 07:58 | DISCHARGE SUMMARY ---
"Discharge Summary Admit Date: 05/08/24 Discharge Date: 05/12/24 Discharging Provider: Grace Santos PA-C Primary Care Provider: Zoila Oliver Code Status: Attempt Resuscitation Condition at Discharge: Good Discharge Disposition: 01 Home, Self Care - DIAGNOSES Admission Diagnoses: Hyponatremia Covid 19 Hypertension Hyperlipidemia h/o DVT hypothyroidism Discharge Diagnoses with Status of Each Condition: Hyponatremia At admission sodium level was 119. She was placed on fluid restriction 1500 mL a day and serial sodium rechecks. Etiology of the hyponatremia was unclear. She gave no history of hyponatremia and has regular primary care follow-up. Her sodium initially came up very quickly from 1 19-1 25 in the first 8 hours. Rate was slowed with fluid administration and DDAVP. Unfortunately it then dropped again. She finished her course of Paxlovid, was placed on free water restriction and her sodium climbed over the next 48 hours from 121 to 129. On the morning of discharge it was 132. COVID-19 infection Became symptomatic on 05/06/2024. Was admitted through the emergency department on 05/08/2024 with fatigue nausea vomiting and a positive test. She did not have any hypoxia she had slight cough she did have some fatigue. She completed her course of Paxlovid while here. She had started it on 05/06/2024. Unfortunately they were only able to get a renal dosing pack and that is what she completed. Hypertension She was normotensive without medications the beginning of her hospital stay her blood pressure gradually climbed into the 140s 150s her medications were gradually restarted and resume to normal home dosing History of DVT Has been on Eliquis for quite some time. Her dosing was reduced to 2.5 mg twice daily while on Paxlovid and was instructed to continue this for 1 week after. She did have duplex exam of the left lower extremity completed while she was here there was no remaining clot. This was her first lifetime episode of DVT several years ago and it was not provoked. Apparently in the past she has been evaluated by hematology and the decision was made for her to stay on anticoagulation therapy for the rest of her life. Hyperlipidemia Home statin was restarted here Hypothyroidism Home medication restarted - HPI History of Present Illness: From my admission H&P: 89-year-old female who was in her usual state of health until about 4 days ago when she began to have upper respiratory infection symptoms. She was having sore throat and cough. She has not been running any fevers that she is aware of. She did a home COVID test 2 days ago in the morning when she said she just did not feel right. Her COVID test was positive. She called a family member who is a physician as she was unable to get in touch with her PCP and was placed on Paxlovid. She was only able to get the renal dosing for Paxlovid so that is what she is taking at this time. She denies any history of renal problems. Yesterday evening she had decreased appetite and then began to have copious nausea vomiting and diarrhea through the night. She states that she really does not like to vomit and therefore came to the hospital early this morning. She continues to have decreased appetite but has not had any additional episodes of vomiting since arrival at the hospital. She denies any blood in her stool she has not had any blood in her vomitus. She states that she did drink a lot of water yesterday evening as she felt that maybe she was slightly dehydrated. She also feels very fatigued. She has chronic cold intolerance this has been going on since she started the Eliquis several years ago. - CONSULTS | PROCEDURES Consultations: none Procedures: Left lower extremity venous duplex study which was negative for DVT. - HOSPITAL COURSE Hospital Course: admitted with hyponatremia as above, And concurrent COVID-19 diagnosis on Paxlovid. Fluids were restricted. Serial sodiums were followed. Her home medications for hypertension were gradually restarted as indicated. Home medications for hyperlipidemia and hypothyroidism were restarted. Correction of her hyponatremia is detailed above. She has a remote history of DVT, 1 lifetime episode. Upon further discussions with the patient it seems she has been evaluated by hematology in the past and the decision was made to continue with lifelong anticoagulation. She cannot tell me the rationale behind this decision. In any event while on Paxil bid her Eliquis was dosed at 2.5 mg twice a day. She lives with her who is in a good state of health and has supportive family around her. She will discharge to home With a sodium of 132. She will return for repeat symptoms. She will follow-up with her primary care physician, Dr. Oliver who is located in [place]. She has been in close contact with Dr. Oliver during this hospitalization. - ALLERGIES Allergies/Adverse Reactions: Allergies Allergy/AdvReac Type Severity Reaction Status Date / Time No Known Drug Allergies Allergy Verified 02/10/22 15:30 - MEDICATIONS Home Medications: Ambulatory Orders Medication Instructions Recorded Confirmed Atenolol 50 mg PO DAILY 11/13/16 05/09/24 Simvastatin 10 mg PO QPM 11/13/16 11/13/16 lisinopriL [Lisinopril] 40 mg PO DAILY 11/13/16 05/09/24 Apixaban [Eliquis] 2.5 mg PO BID 03/31/20 05/09/24 Amlodipine Besylate [Norvasc] 10 mg PO DAILY 05/08/24 05/09/24 Levothyroxine [Synthroid] 75 mcg PO QDAC 05/09/24 05/09/24 Apixaban [Eliquis] 2.5 mg PO BID tab 05/12/24 - PHYSICAL EXAM AT DISCHARGE General Appearance: positive: No acute distress Eyes Bilateral: positive: Normal inspection ENT: positive: ENT inspection nml Neck: positive: Nml inspection Respiratory: positive: No respiratory distress, Breath sounds nml Cardiovascular: positive: Regular rate & rhythm Peripheral Pulses: positive: 2+ Abdomen: positive: No distention Back: positive: Nml inspection Skin: positive: Color nml Extremities: positive: Non-tender, No pedal edema Neurologic/Psychiatric: positive: Oriented x3 - LABS Result Diagrams: 05/12/24 05:21 05/12/24 05:21 - FOLLOW UP Follow Up: Dr Oliver, PCP. within one week. Telehealth for this would be fine. - TIME SPENT Time Spent in Discharge (Minutes): 30"
[2024-05-12 08:12] VITALS: BP 140/83; O2SAT 96
[2024-05-12] MEDS: lisinopriL 20 MG TABLET PO SCH (08:45)
== END 2024-05-12 10:20 | disposition home or self-care (01) | DRG 640 ==
LOC: EDUNIT# → EDBD → ED 04:00 → MS2 08:22 → UNDOADMIN 08:22 → MS2 10:59 → UNDODISIN 05-12 10:20
PROVIDERS: ADMIT Physician Assistant Medical; ATTEND Physician Assistant Medical
DX: E87.1 Hypo-osmolality and hyponatremia (principal); R19.7 Diarrhea, unspecified; R11.2 Nausea with vomiting, unspecified; D64.9 Anemia, unspecified; D72.819 Decreased white blood cell count, unspecified; U07.1 COVID-19; I10 Essential (primary) hypertension; E78.5 Hyperlipidemia, unspecified; E03.9 Hypothyroidism, unspecified; Z86.718 Personal history of other venous thrombosis and embolism; Z79.01 Long term (current) use of anticoagulants; I15.9 Secondary hypertension, unspecified; R63.0 Anorexia; Z68.23 Body mass index [BMI] 23.0-23.9, adult
CPT/HCPCS: 36415; 80048; 80053; 81003; 83690; 83935; 84295; 84300; 85025; 87633; 93971; 96361; 96374; 99284; 99285; A9270; G0378; J2597; 81001; 87086; 87635